=== PATIENT | female | born 2000 | race Hispanic/Latino ===

== ENCOUNTER 2022-12-24 21:00 | Emergency (ER) | payer BC, OTHER ==
[2022-12-24] MEDS ORDERED: Ibuprofen 200 MG TAB ONE (21:33)
[2022-12-24] MEDS ORDERED: traMADol HCl 50 MG TAB ONE (21:33)
== END 2022-12-24 21:44 | disposition home or self-care (01) ==
LOC: CSHERS 21:00
DX: L55.1 Sunburn of second degree (principal)
CPT/HCPCS: 99282